=== PATIENT | male | born 1970 | race American Indian/Alaskan Native ===

== ENCOUNTER 2018-10-29 04:43 | Emergency (ER) | payer MEDICAID ==
[2018-10-29] MEDS ORDERED: Lactated Ringers 1,000 ML IV ONE (05:02)
--- NOTE | 2018-10-29 05:07 | EDM.PDOC ---
"<Rubio Hall M - Last Filed: 10/29/18 07:00> ED HPI GENERAL MEDICAL PROBLEM - General Chief Complaint: Gastrointestinal Problem Stated Complaint: AMBULANCE Time Seen by Provider: 10/29/18 05:00 Source of Information: Reports: Patient History Limitations: Reports: No Limitations - History of Present Illness INITIAL COMMENTS - FREE TEXT/NARRATIVE: This 48 yo male patient was brought to the ED by [facility] due to right upper quadrant abdominal pain. The patient reports he woke up about 1 hour ago with pain in his right upper quadrant. The patient states he went to the bathroom, fell down and started vomiting (7-8 times). The patient reports he has a history of pancreatitis, was supposed to have a follow-up appointment, but did not follow-up. The patient reports he drank 7-8 beers last night. The patient denies taking anything for his pain. Onset: Today Onset Date: 10/29/18 Onset Time: 04:00 Duration: Constant Location: Reports: Abdomen (RUQ) Quality: Reports: Ache, Sharp Severity: Moderate Improves with: Reports: None Worsens with: Reports: None Context: Reports: Other Associated Symptoms: Reports: Nausea/Vomiting Treatments AD OPERATIONS SPECIALIST: Reports: IV/IO Right Upper Abdomen Pain Score (Numeric/FACES): 8 - Related Data Allergies Allergy/AdvReac Type Severity Reaction Status Date / Time No Known Allergies Allergy Verified 10/29/18 05:07 Home Meds: Home Meds Aspirin [Halfprin] 81 mg PO BRK 05/01/16 [History] Lisinopril [Zestril] 10 mg PO DAILY 05/01/16 [History] Omeprazole 20 mg PO DAILY 09/23/18 [History] Past Medical History HEENT History: Reports: None Cardiovascular History: Reports: Hypertension Other Cardiovascular History: States his heart beats a little faster than it should. Respiratory History: Reports: None Gastrointestinal History: Reports: GERD, Other (See Below) Other Gastrointestinal History: Had something on his liver about 2 months ago. was suppose to follow up but did not. 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 - Infectious Disease History Infectious Disease History: Reports: None - Past Surgical History HEENT Surgical History: Reports: None GI Surgical History: Reports: EGD Social & Family History - Family History Family Medical History: Noncontributory - Tobacco Use Smoking Status *Q: Never Smoker Second Hand Smoke Exposure: No - Caffeine Use Caffeine Use: Reports: Soda - Alcohol Use Date of Last Drink: 10/28/18 - Recreational Drug Use Recreational Drug Use: No - Living Situation & Occupation Living situation: Reports: with Family Occupation: Employed ED ROS GENERAL - Review of Systems Review Of Systems: ROS reveals no pertinent complaints other than HPI. ED EXAM, GI/ABD - Physical Exam Exam: See Below Exam Limited By: No Limitations General Appearance: Alert, WD/WN, Moderate Distress Eyes: Bilateral: Normal Appearance, EOMI Ears: Normal External Exam, Normal Canal, Hearing Grossly Normal, Normal TMs Nose: Normal Inspection, Normal Mucosa, No Blood Throat/Mouth: Normal Inspection, Normal Lips, Normal Teeth, Normal Gums, Normal Oropharynx, Normal Voice, No Airway Compromise Head: Atraumatic, Normocephalic Neck: Normal Inspection, Supple, Non-Tender, Full Range of Motion Respiratory/Chest: No Respiratory Distress, Lungs Clear, Normal Breath Sounds, No Accessory Muscle Use, Chest Non-Tender GI/Abdominal Exam: Normal Bowel Sounds, No Organomegaly, No Distention, No Abnormal Bruit, No Mass, Pelvis Stable, Tender (RUQ) (Male) Exam: Deferred Rectal (Males) Exam: Deferred Back Exam: Normal Inspection, Full Range of Motion, NT Extremities: Normal Inspection, Normal Range of Motion, Non-Tender, Normal Capillary Refill, No Pedal Edema Neurological: Alert, Oriented, CN II-XII Intact, Normal Cognition, Normal Gait, Normal Reflexes, No Motor/Sensory Deficits Psychiatric: Normal Affect, Normal Mood Skin Exam: Warm, Dry, Intact, Normal Color, No Rash Lymphatic: No Adenopathy Course - Vital Signs Last Recorded V/S: Last Vital Signs Temp 37.0 C 10/29/18 09:05 Pulse 87 10/29/18 09:05 Resp 14 10/29/18 09:05 BP 108/64 10/29/18 09:05 Pulse Ox 96 10/29/18 09:05 - Orders/Labs/Meds Orders: Active Orders 24 hr Category Date Time Status EKG Documentation Completion [RC] URGENT Care 10/29/18 05:31 Active Abdomen Ltd [US] Urgent Exams 10/29/18 08:19 Taken CULTURE BLOOD [BC] Stat Lab 10/29/18 05:07 Received Labs: Laboratory Tests 10/29/18 10/29/18 10/29/18 Range/Units 05:07 05:07 05:07 WBC (5.0-10.0) 10^3/uL RBC (4.6-6.2) 10^6/uL Hgb (14.0-18.0) g/dL Hct (40.0-54.0) % MCV (80-100) fL MCH (27.0-34.0) pg MCHC (33.0-35.0) g/dL Plt Count (150-450) 10^3/uL Neut % (Auto) (42.2-75.2) % Lymph % (Auto) (20.5-50.1) % Columbia % (Auto) (2-8) % Eos % (Auto) (1.0-3.0) % Baso % (Auto) (0.0-1.0) % Sodium (135-145) mmol/L Potassium (3.6-5.0) mmol/L Chloride (101-111) mmol/L Carbon Dioxide (21.0-31.0) mmol/L Anion Gap BUN (7-18) mg/dL Creatinine (0.6-1.3) mg/dL Est Cr Clr Drug Dosing mL/min Estimated GFR (MDRD) BUN/Creatinine Ratio Glucose (74-105) mg/dL Lactic Acid 1.3 (0.5-2.2) mmol/L Calcium (8.4-10.2) mg/dl Total Bilirubin (0.2-1.0) mg/dL AST (10-42) IU/L ALT (10-60) IU/L Alkaline Phosphatase (42-121) IU/L Ammonia 8 L (11-35) umol/L Total Protein (6.7-8.2) g/dl Albumin (3.2-5.5) g/dl Globulin Albumin/Globulin Ratio Amylase 73 (28-100) U/L Lipase 55 H (22-51) U/L Urine Color (YELLOW) Urine Appearance (CLEAR) Urine pH (5.0-9.0) Ur Specific Hallock (1.005-1.030) Urine Protein (NEGATIVE) Urine Glucose (UA) (NEGATIVE) Urine Ketones (NEGATIVE) Urine Occult Blood (NEGATIVE) Urine Nitrite (NEGATIVE) Urine Bilirubin (NEGATIVE) Urine Urobilinogen (0.2-1.0) mg/dL Ur Leukocyte Esterase (NEGATIVE) Urine Opiates Screen (NEGATIVE) Ur Oxycodone Screen (NEGATIVE) Urine Methadone Screen (NEGATIVE) Acetaminophen < 10 ug/mL Ur Barbiturates Screen (NEGATIVE) U Tricyclic Antidepress (NEGATIVE) Ur Phencyclidine Scrn (NEGATIVE) Ur Amphetamine Screen (NEGATIVE) U Methamphetamines Scrn (NEGATIVE) Urine MDMA Screen (NEGATIVE) U Benzodiazepines Scrn (NEGATIVE) Urine Cocaine Screen (NEGATIVE) U Marijuana (THC) Screen (NEGATIVE) Ethyl Alcohol 136 mg/dL 10/29/18 10/29/18 10/29/18 Range/Units 05:07 05:07 07:45 WBC 5.0 (5.0-10.0) 10^3/uL RBC 4.13 L (4.6-6.2) 10^6/uL Hgb 12.1 L (14.0-18.0) g/dL Hct 36.1 L (40.0-54.0) % MCV 87.4 (80-100) fL MCH 29.3 (27.0-34.0) pg MCHC 33.5 (33.0-35.0) g/dL Plt Count 113 L (150-450) 10^3/uL Neut % (Auto) 73.1 (42.2-75.2) % Lymph % (Auto) 14.9 L (20.5-50.1) % Columbia % (Auto) 9.8 H (2-8) % Eos % (Auto) 2.0 (1.0-3.0) % Baso % (Auto) 0.2 (0.0-1.0) % Sodium 135 (135-145) mmol/L Potassium 3.7 (3.6-5.0) mmol/L Chloride 101 (101-111) mmol/L Carbon Dioxide 24.0 (21.0-31.0) mmol/L Anion Gap 13.7 BUN 8 (7-18) mg/dL Creatinine 0.6 (0.6-1.3) mg/dL Est Cr Clr Drug Dosing 150.56 mL/min Estimated GFR (MDRD) > 60 BUN/Creatinine Ratio 13.33 Glucose 124 H (74-105) mg/dL Lactic Acid (0.5-2.2) mmol/L Calcium 8.6 (8.4-10.2) mg/dl Total Bilirubin 2.0 H (0.2-1.0) mg/dL AST 90 H (10-42) IU/L ALT 41 (10-60) IU/L Alkaline Phosphatase 193 H (42-121) IU/L Ammonia (11-35) umol/L Total Protein 8.0 (6.7-8.2) g/dl Albumin 3.5 (3.2-5.5) g/dl Globulin 4.5 Albumin/Globulin Ratio 0.78 Amylase (28-100) U/L Lipase (22-51) U/L Urine Color Yellow (YELLOW) Urine Appearance Clear (CLEAR) Urine pH 6.0 (5.0-9.0) Ur Specific Hallock 1.010 (1.005-1.030) Urine Protein Negative (NEGATIVE) Urine Glucose (UA) Negative (NEGATIVE) Urine Ketones Negative (NEGATIVE) Urine Occult Blood Negative (NEGATIVE) Urine Nitrite Negative (NEGATIVE) Urine Bilirubin Negative (NEGATIVE) Urine Urobilinogen 0.2 (0.2-1.0) mg/dL Ur Leukocyte Esterase Negative (NEGATIVE) Urine Opiates Screen (NEGATIVE) Ur Oxycodone Screen (NEGATIVE) Urine Methadone Screen (NEGATIVE) Acetaminophen ug/mL Ur Barbiturates Screen (NEGATIVE) U Tricyclic Antidepress (NEGATIVE) Ur Phencyclidine Scrn (NEGATIVE) Ur Amphetamine Screen (NEGATIVE) U Methamphetamines Scrn (NEGATIVE) Urine MDMA Screen (NEGATIVE) U Benzodiazepines Scrn (NEGATIVE) Urine Cocaine Screen (NEGATIVE) U Marijuana (THC) Screen (NEGATIVE) Ethyl Alcohol mg/dL 10/29/18 Range/Units 07:45 WBC (5.0-10.0) 10^3/uL RBC (4.6-6.2) 10^6/uL Hgb (14.0-18.0) g/dL Hct (40.0-54.0) % MCV (80-100) fL MCH (27.0-34.0) pg MCHC (33.0-35.0) g/dL Plt Count (150-450) 10^3/uL Neut % (Auto) (42.2-75.2) % Lymph % (Auto) (20.5-50.1) % Columbia % (Auto) (2-8) % Eos % (Auto) (1.0-3.0) % Baso % (Auto) (0.0-1.0) % Sodium (135-145) mmol/L Potassium (3.6-5.0) mmol/L Chloride (101-111) mmol/L Carbon Dioxide (21.0-31.0) mmol/L Anion Gap BUN (7-18) mg/dL Creatinine (0.6-1.3) mg/dL Est Cr Clr Drug Dosing mL/min Estimated GFR (MDRD) BUN/Creatinine Ratio Glucose (74-105) mg/dL Lactic Acid (0.5-2.2) mmol/L Calcium (8.4-10.2) mg/dl Total Bilirubin (0.2-1.0) mg/dL AST (10-42) IU/L ALT (10-60) IU/L Alkaline Phosphatase (42-121) IU/L Ammonia (11-35) umol/L Total Protein (6.7-8.2) g/dl Albumin (3.2-5.5) g/dl Globulin Albumin/Globulin Ratio Amylase (28-100) U/L Lipase (22-51) U/L Urine Color (YELLOW) Urine Appearance (CLEAR) Urine pH (5.0-9.0) Ur Specific Hallock (1.005-1.030) Urine Protein (NEGATIVE) Urine Glucose (UA) (NEGATIVE) Urine Ketones (NEGATIVE) Urine Occult Blood (NEGATIVE) Urine Nitrite (NEGATIVE) Urine Bilirubin (NEGATIVE) Urine Urobilinogen (0.2-1.0) mg/dL Ur Leukocyte Esterase (NEGATIVE) Urine Opiates Screen Negative (NEGATIVE) Ur Oxycodone Screen Negative (NEGATIVE) Urine Methadone Screen Negative (NEGATIVE) Acetaminophen ug/mL Ur Barbiturates Screen Negative (NEGATIVE) U Tricyclic Antidepress Negative (NEGATIVE) Ur Phencyclidine Scrn Negative (NEGATIVE) Ur Amphetamine Screen Negative (NEGATIVE) U Methamphetamines Scrn Positive H (NEGATIVE) Urine MDMA Screen Negative (NEGATIVE) U Benzodiazepines Scrn Negative (NEGATIVE) Urine Cocaine Screen Negative (NEGATIVE) U Marijuana (THC) Screen Negative (NEGATIVE) Ethyl Alcohol mg/dL Meds: Medications Discontinued Medications Generic Name Dose Route Start Last Admin Trade Name Freq PRN Reason Stop Dose Admin Famotidine 20 mg 10/29/18 07:52 10/29/18 08:01 Pepcid IVPUSH 10/29/18 07:53 20 mg ONETIME ONE Administration Hydromorphone HCl 1 mg 10/29/18 05:15 10/29/18 05:19 Dilaudid IVPUSH 10/29/18 05:16 1 mg ONETIME ONE Administration Hydromorphone HCl 1 mg 10/29/18 08:22 10/29/18 08:37 Dilaudid IVPUSH 10/29/18 08:23 1 mg ONETIME ONE Administration Lactated Ringer's 1,000 mls @ 999 mls/hr 10/29/18 05:02 10/29/18 05:07 Ringers, Lactated IV 10/29/18 06:02 999 mls/hr .BOLUS ONE Administration Iopamidol 75 ml 10/29/18 06:36 10/29/18 07:05 Isovue-300 (61%) IVPUSH 10/29/18 06:37 75 ml ONETIME ONE Administration Ondansetron HCl 4 mg 10/29/18 07:52 10/29/18 08:03 Zofran IV 10/29/18 07:53 4 mg ONETIME ONE Administration - Re-Assessments/Exams Free Text/Narrative Re-Assessment/Exam: 10/29/18 07:[address] Parks at shift change. Departure - Departure Disposition: DC/Tfer to [facility] 02 Clinical Impression: Cholecystitis - Discharge Information Forms: ED Department Discharge, Interfacility Transfer EMTALA - My Orders Last 24 Hours: My Active Orders 10/29/18 08:19 Abdomen Ltd [US] Urgent - Assessment/Plan Last 24 Hours: My Active Orders 10/29/18 08:19 Abdomen Ltd [US] Urgent <April Parks - Last Filed: 10/29/18 10:01> ED HPI GENERAL MEDICAL PROBLEM - History of Present Illness INITIAL COMMENTS - FREE TEXT/NARRATIVE: I assumed care of the pt from Rubio COFFMAN at 0700HR shift change with CT Abd/Pelvis results pending. No changes to CC/HPI, Hx, ROS, exam, or lab results as documented by Rubio for this encounter. ED EXAM, GI/ABD - Physical Exam Exam: See Below Exam Limited By: No Limitations General Appearance: Alert, WD/WN, No Apparent Distress. No: Active Emesis Eyes: Bilateral: Normal Appearance Nose: Normal Inspection, No Blood Throat/Mouth: Normal Inspection, Normal Lips, Normal Teeth, Normal Gums, Normal Oropharynx, Normal Voice, No Airway Compromise Head: Atraumatic, Normocephalic Respiratory/Chest: No Respiratory Distress, Lungs Clear, Normal Breath Sounds, No Accessory Muscle Use, Chest Non-Tender Cardiovascular: Normal Peripheral Pulses, Regular Rate, Rhythm, No Edema, No Gallop, No JVD, No Murmur, No Rub GI/Abdominal Exam: Normal Bowel Sounds, Soft, No Organomegaly, No Distention, No Abnormal Bruit, No Mass, Pelvis Stable, Tender Back Exam: Normal Inspection Extremities: Normal Inspection Neurological: Alert, Oriented, No Motor/Sensory Deficits Psychiatric: Normal Mood Skin Exam: Warm, Dry, Intact, Normal Color, No Rash Course - Radiology Interpretation Free Text/Narrative:: [facility] Final Radiology Report Call: [phone] assistance Online chat: [email or web address] Name: BUD BRIGGS Age: 48Years M Date: 10/29/2018 SSN: -- : [id number] Study: CT ABDOMEN/PELVIS W Requesting Physician: Rubio Hall Images: 1 Addl Studies: Provided Clinical History: Contrast: With Contrast Medium: ISOVUE 300 Contrast Amount: 75 mL Contrast Method: RAC Page 1 of 2 EXAM: CT Abdomen and Pelvis With Contrast EXAM DATE/TIME: 10/29/2018 6:54 AM CLINICAL HISTORY: 48 years old, male; Pain; Abdominal pain; Localized; Right upper quadrant (ruq) TECHNIQUE: Axial computed tomography images of the abdomen and pelvis with intravenous contrast. All CT scans at this facility use at least one of these dose optimization techniques: automated exposure control; mA and/or kV adjustment per patient size (includes targeted exams where dose is matched to clinical indication); or iterative reconstruction. Coronal and sagittal reformatted images were created and reviewed. CONTRAST: 75 ml of ISOVUE 300 administered intravenously. COMPARISON: CT Abdomen Pelvis w Cont 09/23/2018 11:16 PM FINDINGS: Lower thorax: The visualized lung bases are clear. ABDOMEN: Liver: The liver is again cirrhotic and fatty in density. No discrete lesion is identified. Gallbladder and bile ducts: The gallbladder is again distended. No gallstones are evident, but ultrasound would be more sensitive. There again appears to be small pericholecystic fluid. Pancreas: Normal. No ductal dilation. BUD BRIGGS | Final Radiology Report CONFIDENTIALITY STATEMENT This report is intended only for use by the referring physician, and only in accordance with law. If you received this in error, call [phone]. Page 2 of 2 Spleen: Normal. No splenomegaly. Adrenals: Normal. No mass. Kidneys and ureters: Normal. No hydronephrosis. Stomach and bowel: The unopacified small bowel is not significantly distended to suggest obstruction. The large bowel is grossly unremarkable in appearance. Appendix: The appendix appears normal. PELVIS: Bladder: Unremarkable as visualized. Reproductive: The prostate is enlarged, measuring approximately 5.2 x 4.4 cm. ABDOMEN and PELVIS: Intraperitoneal space: There is no free air. There is no significant free fluid. Bones/joints: Degenerative changes again involve the spine and hips. Soft tissues: There is a similar very small fat containing umbilical hernia. Vasculature: The abdominal aorta is nonaneurysmal. Atherosclerotic vascular calcifications are again present. There are again perisplenic, perigastric and periesophageal varices. Lymph nodes: Normal. No enlarged lymph nodes. IMPRESSION: 1. Distended gallbladder with apparent small pericholecystic fluid, as on . No gallstones are evident, but ultrasound would be more sensitive. 2. Persistent cirrhotic, fatty liver with varices. 3. Similar very small fat containing umbilical hernia. 4. Persistent prostatomegaly. Thank you for allowing us to participate in the care of your patient. Dictated and Authenticated by: Dudley Hamilton MD 10/29/2018 8:13 AM Central Time ( & [place]) [facility] Final Radiology Report Call: [phone] assistance Online chat: [email or web address] Name: BUD BRIGGS Age: 48Years M Date: 10/29/2018 SSN: -- : [id number] Study: US ABDOMEN LTD Requesting Physician: APRIL PARKS Images: 15 Addl Studies: Provided Clinical History: Contrast: Without Contrast Medium: Contrast Amount: Contrast Method: Page 1 of 2 EXAM: US Abdomen Limited, Right Upper Quadrant EXAM DATE/TIME: 10/29/2018 8:47 AM CLINICAL HISTORY: 48 years old, male; Pain; Abdominal pain; Epigastric; Patient HX: Very tender in gb region TECHNIQUE: Real-time ultrasound of the abdomen with image documentation. Examination was focused on the right upper quadrant. COMPARISON: CT Abdomen Pelvis w Cont 10/29/2018 6:54 AM FINDINGS: Liver: The liver was not evaluated. Gallbladder: The gallbladder is distended and contains some sludge and/or tiny stones. Its wall is not significantly thickened. There appears to be small pericholecystic fluid. Sonographic Hayes sign is reportedly positive. Common bile duct: The common bile duct is normal in size for a patient of this age at 4.6 mm. Pancreas: Visualized portions of the pancreas, not fully including the tail, are without demonstrated abnormality. IMPRESSION: Distended gallbladder containing some sludge and/or tiny stones, without significant wall thickening, with small pericholecystic fluid. Sonographic Hayes sign was reportedly positive, and this raises suspicion for cholecystitis. BUD BRIGGS | Final Radiology Report CONFIDENTIALITY STATEMENT This report is intended only for use by the referring physician, and only in accordance with law. If you received this in error, call [phone]. Page 2 of 2 Thank you for allowing us to participate in the care of your patient. Dictated and Authenticated by: Dudley Hamilton MD 10/29/2018 9:32 AM Central Time ([place] & [place]) - Re-Assessments/Exams Free Text/Narrative Re-Assessment/Exam: 10/29/18 09:55 Pt's RUQ pain has been persistent for >5 hours, nausea is controlled. Departure - Departure Time of Disposition: 09:56 Condition: Serious - Discharge Information *PRESCRIPTION DRUG MONITORING PROGRAM REVIEWED*: Not Applicable *COPY OF PRESCRIPTION DRUG MONITORING REPORT IN PATIENT MURPHY: Not Applicable - My Orders Last 24 Hours: My Active Orders 10/29/18 08:19 Abdomen Ltd [US] Urgent - Assessment/Plan Last 24 Hours: My Active Orders 10/29/18 08:19 Abdomen Ltd [US] Urgent"
[2018-10-29] MEDS ORDERED: HYDROmorphone 1 MG/ML Syringe IVPUSH ONE ×2 (05:15→08:22)
[2018-10-29 05:40] LABS: ANION GAP 13.7; CHLORIDE,CL 101 mmol/L (101-111); SODIUM,NA 135 mmol/L (135-145)
[2018-10-29 06:04] LABS: ACETAMINOPHEN < 10 ug/mL
[2018-10-29] MEDS ORDERED: Iopamidol 612 MG/ML 75 ML Bottle IVPUSH ONE (06:36)
[2018-10-29] MEDS ORDERED: Famotidine 20 MG/2 ML SDV IVPUSH ONE (07:52)
[2018-10-29] MEDS ORDERED: Ondansetron 4 MG/2 ML SDV IV ONE (07:52)
[2018-10-29 10:09] VITALS: BP 127/71
== END 2018-10-29 15:00 ==
LOC: DL.ED 04:43
DX: K81.9 Cholecystitis, unspecified (principal); K21.9 Gastro-esophageal reflux disease without esophagitis; I10 Essential (primary) hypertension; Z79.82 Long term (current) use of aspirin; Z79.899 Other long term (current) drug therapy
CPT/HCPCS: 36415; 74177; 76705; 80053; 80305-QW; 81003; 82140; 82150; 83605; 83690; 85025; 87040; 93005; 96361; 96374; 96375; 96376; 99285; G0480; J1170; J2405; J3490; J7120; Q9967

== ENCOUNTER 2019-07-26 22:11 | Emergency (ER) | payer MEDICAID ==
[2019-07-26 22:19] VITALS: BP 146/95; PULSE 119
[2019-07-26] MEDS ORDERED: Bacitracin Oint 1 GM U/D Packet TOP ONE (22:35)
[2019-07-26] MEDS ORDERED: Lidocaine 1% 30 ML SDV INJECT ONE (22:35)
--- NOTE | 2019-07-26 22:39 | EDM.PDOC ---
ED HPI GENERAL MEDICAL PROBLEM - General Chief Complaint: Laceration Stated Complaint: CUT ON L HAND Time Seen by Provider: 07/26/19 22:30 Source of Information: Reports: Patient, RN, RN Notes Reviewed History Limitations: Reports: No Limitations - History of Present Illness INITIAL COMMENTS - FREE TEXT/NARRATIVE: patient presents to ER with a complaint of laceration to the left ventral hand. Patient states he was cutting PVC with a utility knife, and the knife slipped. Patient states tetanus vaccination is up-to-date. Onset: Today, Sudden Left Finger-Thumb Pain Score (Numeric/FACES): 5 - Related Data Allergies Allergy/AdvReac Type Severity Reaction Status Date / Time No Known Allergies Allergy Verified 07/26/19 22:24 Home Meds: Home Meds Aspirin [Halfprin] 81 mg PO BRK 05/01/16 [History] Lisinopril [Zestril] 10 mg PO DAILY 05/01/16 [History] Omeprazole 20 mg PO DAILY 09/23/18 [History] Past Medical History HEENT History: Reports: Impaired Vision Cardiovascular History: Reports: Hypertension Other Cardiovascular History: States his heart beats a little faster than it should. Respiratory History: Reports: None Gastrointestinal History: Reports: Cirrhosis, GERD, Other (See Below) Other Gastrointestinal History: Had something on his liver about 2 months ago. was suppose to follow up but did not. 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 Neurological History: Reports: None Psychiatric History: Reports: None Endocrine/Metabolic History: Reports: None Hematologic History: Reports: None Immunologic History: Reports: None Oncologic (Cancer) History: Reports: None Dermatologic History: Reports: None - Infectious Disease History Infectious Disease History: Reports: None - Past Surgical History Head Surgeries/Procedures: Reports: None HEENT Surgical History: Reports: None GI Surgical History: Reports: EGD Social & Family History - Family History Family Medical History: Noncontributory - Tobacco Use Smoking Status *Q: Never Smoker - Caffeine Use Caffeine Use: Reports: None - Recreational Drug Use Recreational Drug Use: No - Living Situation & Occupation Living situation: Reports: with Family Occupation: Employed ED ROS GENERAL - Review of Systems Review Of Systems: ROS reveals no pertinent complaints other than HPI. ED EXAM, SKIN/RASH Exam: See Below Exam Limited By: No Limitations General Appearance: Alert, WD/WN, No Apparent Distress Eye Exam: Bilateral Eye: EOMI, Normal Inspection Ears: Normal External Exam, Hearing Grossly Normal Nose: Normal Inspection Throat/Mouth: Normal Inspection, Normal Voice, No Airway Compromise Head: Atraumatic, Normocephalic Neck: Normal Inspection, Supple, Non-Tender, Full Range of Motion Respiratory/Chest: No Respiratory Distress, Lungs Clear, Normal Breath Sounds, No Accessory Muscle Use, Chest Non-Tender Cardiovascular: Normal Peripheral Pulses, Regular Rate, Rhythm, No Edema, No Gallop, No JVD, No Murmur, No Rub Peripheral Pulses: 2+: Radial (L), Radial (R) GI/Abdominal: Normal Bowel Sounds, Soft, Non-Tender (Male) Exam: Deferred Rectal (Males) Exam: Deferred Back Exam: Normal Inspection, Full Range of Motion, NT Extremities: Normal Inspection, Normal Range of Motion, Non-Tender, No Pedal Edema, Normal Capillary Refill Neurological: Alert, Oriented, CN II-XII Intact, Normal Cognition, Normal Gait, Normal Reflexes, No Motor/Sensory Deficits Psychiatric: Normal Affect, Normal Mood Skin: Warm, Dry, Other (3 cm laceration to the left ventral distal thumb) Location, Skin: Upper Extremity, Left Lymphatic: No Adenopathy ED SKIN PROCEDURES - Laceration/Wound Repair Left Proximal Ventral Digit - 1st (Thumb) Appearance: Subcutaneous Distal NVT: Neuro & Vascular Intact Anesthetic Type: Local Local Anesthesia - Lidocaine (Xylocaine): 1% Plain Local Anesthetic Volume: Other (12) Skin Prep: Chlorhexidine (Hibiciens) Exploration/Debridement/Repair: Wound Explored, In a Bloodless Field, Explored to Base, No Foreign Material Found Closed with: Sutures Lac/Wound length In cm: 3 Suture Size: 4-0 # of Sutures: 5 Suture Type: Nylon, Interrupted Drain Placement: No Sterile Dressing Applied: Provider Tetanus Status Addressed: Yes Complications: No Course - Vital Signs Last Recorded V/S: Last Vital Signs Temp 98.5 F 07/26/19 22:18 Pulse 119 H 07/26/19 22:18 Resp 18 07/26/19 22:18 BP 146/95 H 07/26/19 22:18 Pulse Ox 97 07/26/19 22:18 - Orders/Labs/Meds Meds: Medications Discontinued Medications Generic Name Dose Route Start Last Admin Trade Name Tab PRN Reason Stop Dose Admin Bacitracin 1 dose 07/26/19 22:35 07/26/19 22:38 Bacitracin Oint 1 Gm TOP 07/26/19 22:36 1 dose ONETIME ONE Administration Lidocaine HCl 30 ml 07/26/19 22:35 07/26/19 22:38 Xylocaine-Mpf 1% INJECT 07/26/19 22:36 30 ml ONETIME ONE Administration Departure - Departure Time of Disposition: 23:03 Disposition: Home, Self-Care 01 Condition: Good Clinical Impression: Laceration - Discharge Information *PRESCRIPTION DRUG MONITORING PROGRAM REVIEWED*: No *COPY OF PRESCRIPTION DRUG MONITORING REPORT IN PATIENT MURPHY: No Instructions: Laceration Care, Adult, [id number], Stitches, Pomerene, or Adhesive Wound Closure, [id number] Forms: ED Department Discharge Additional Instructions: Follow up with your primary care facility in 7-10 days to have sutures removed Keep area clean and dry Monitor for signs of infection i.e. swelling, redness, warmth, drainage
== END 2019-07-26 23:07 | disposition home or self-care (01) ==
LOC: DL.ED 22:11
DX: S61.012A Laceration without foreign body of left thumb without damage to nail, initial encounter (principal); I10 Essential (primary) hypertension; K21.9 Gastro-esophageal reflux disease without esophagitis; Z79.82 Long term (current) use of aspirin; Z79.899 Other long term (current) drug therapy; W26.0XXA Contact with knife, initial encounter; Y93.89 Activity, other specified
CPT/HCPCS: 12002; 99282; J2001

== ENCOUNTER 2022-12-11 23:25 | Emergency (ER) | payer MEDICAID ==
[2022-12-11] MEDS ORDERED: Lactated Ringers 1,000 ML IV ONE (23:28)
[2022-12-12 00:05] LABS: PTT,PARTIAL THROMBOPLSTIN TIME 25.2 SEC (22.0-34.0)
[2022-12-12 00:08] LABS: ANION GAP 14.5 mEq/L (7-13); CHLORIDE,CL 101 mmol/L (98-107); SODIUM,NA 138 mmol/L (136-145)
[2022-12-12 00:16] LABS: ESTIMATED GFR 95 mL/min (>=60)
[2022-12-12 00:26] LABS: AMPHETAMINES,URINE POSITIVE (NEGATIVE); BARBITURATES,URINE NEGATIVE (NEGATIVE); BENZODIAZEPINE,URINE NEGATIVE (NEGATIVE); MDMA (ECSTASY), URINE NEGATIVE (NEGATIVE); METHADONE,URINE NEGATIVE (NEGATIVE); METHAMPHETAMINES,URINE POSITIVE (NEGATIVE); OPIATES,URINE NEGATIVE (NEGATIVE); OXYCODONE,URINE NEGATIVE (NEGATIVE); PHENCYCLIDINE,URINE NEGATIVE (NEGATIVE); TCA,URINE NEGATIVE (NEGATIVE)
[2022-12-12] MEDS ORDERED: Lidocaine 1% with EPINEPHrine 1:100,000 20 ML MDV ONE (00:43)
[2022-12-12] MEDS ORDERED: Bacitracin Oint 1 GM U/D Packet TOP ONE (01:22)
[2022-12-12] MEDS ORDERED: Diphtheria,Pertussis(Acell),Tetanus Vaccine 0.5 ML Syringe IM ONE (01:24)
== END 2022-12-12 01:39 | disposition home or self-care (01) ==
LOC: DL.ED 23:25
DX: S01.81XA Laceration without foreign body of other part of head, initial encounter (principal); S00.531A Contusion of lip, initial encounter; S00.33XA Contusion of nose, initial encounter; K02.9 Dental caries, unspecified; F15.10 Other stimulant abuse, uncomplicated; D17.0 Benign lipomatous neoplasm of skin and subcutaneous tissue of head, face and neck; I10 Essential (primary) hypertension; K21.9 Gastro-esophageal reflux disease without esophagitis; M19.90 Unspecified osteoarthritis, unspecified site; Z23 Encounter for immunization; Z79.82 Long term (current) use of aspirin; Z79.899 Other long term (current) drug therapy; W10.9XXA Fall (on) (from) unspecified stairs and steps, initial encounter
CPT/HCPCS: 12013; 36415; 70450; 70486; 72125; 80053; 80305-QW; 80307; 85025; 85610; 85730; 86140; 90471; 99284; 99284-25

== ENCOUNTER 2023-06-15 22:40 | Emergency (ER) | payer MEDICAID ==
[2023-06-15] MEDS ORDERED: Bacitracin Oint 1 GM U/D Packet TOP ONE (23:04)
[2023-06-15] MEDS ORDERED: Diphtheria,Pertussis(Acell),Tetanus Vaccine 0.5 ML Syringe IM ONE (23:04)
[2023-06-15] MEDS ORDERED: Lidocaine 1% 5 ML VIAL INJECT ONE (23:04)
[2023-06-15 23:05] VITALS: BP 137/96; PULSE 117
== END 2023-06-16 00:13 | disposition home or self-care (01) ==
LOC: DL.ED 22:40
DX: S01.111A Laceration without foreign body of right eyelid and periocular area, initial encounter (principal); R60.9 Edema, unspecified; I10 Essential (primary) hypertension; K21.9 Gastro-esophageal reflux disease without esophagitis; Z79.899 Other long term (current) drug therapy; Y04.0XXA Assault by unarmed brawl or fight, initial encounter
CPT/HCPCS: 12011; 70450; 70486; 72125; 90471; 90715; 99283; 99284-25; A9270-GY; J3490

== ENCOUNTER 2023-12-11 21:09 | Emergency (ER) | payer MEDICAID ==
[2023-12-11] MEDS ORDERED: Morphine 4 MG/ML Syringe IVPUSH ONE (21:23)
[2023-12-11 21:24] VITALS: BP 151/95; PULSE 89
[2023-12-11 21:38] LABS: BASOPHILS PERCENT AUTO 0.6 % (0.0-1.0); EOSINOPHILS PERCENT AUTO 2.4 % (1.0-3.0); HEMATOCRIT 39.1 % (40.0-54.0); HEMOGLOBIN 13.4 g/dL (14.0-18.0); LYMPHOCYTES PERCENT AUTO 33.7 % (20.5-50.1); MEAN CORPUSCULAR HEMOGLOBIN 31.2 pg (27.0-34.0); MEAN CORPUSCULAR HGB CONC 34.3 g/dL (33.0-35.0); MEAN CORPUSCULAR VOLUME 91.1 fL (80-100); NEUTROPHILS PERCENT AUTO 47.3 % (42.2-75.2); PLATELET COUNT,PLT 75 10^3/uL (150-450); RED BLOOD CELL COUNT 4.29 10^6/uL (4.6-6.2); WHITE BLOOD CELL COUNT,WBC 3.3 10^3/uL (5.0-10.0)
[2023-12-11] MEDS: Ondansetron 4 MG/2 ML SDV IVPUSH ONE (21:39)
[2023-12-11] MEDS: Morphine 2 MG/ML SYRINGE IVPUSH ONE (21:44)
[2023-12-11 22:00] LABS: A/G RATIO 0.8; ALBUMIN 3.5 g/dL (3.4-5.0); ANION GAP 12.8 mEq/L (7-13); BILIRUBIN TOTAL 1.3 mg/dL (0.2-1.0); BUN/CREATININE RATIO 10.2 (No establ ref range); CALCIUM 8.9 mg/dL (8.5-10.1); CREATININE 0.88 mg/dL (0.70-1.30); EST CRCL DRUG DOSING (CG) 97.08 mL/min; POTASSIUM,K 3.8 mmol/L (3.5-5.1); PROTEIN TOTAL,TP 7.9 g/dL (6.4-8.2)
[2023-12-11] MEDS: Sodium Chloride 0.9% 10 ML Syringe FLUSH PRN (22:00)
[2023-12-11] MEDS: Iopamidol 612 MG/ML 100 ML Bottle IVPUSH ONE (22:00)
[2023-12-11 22:01] LABS: APPEARANCE,URINE SLIGHTLY CLOUDY (CLEAR); BILIRUBIN,URINE NEGATIVE (NEGATIVE); COLOR,URINE YELLOW (YELLOW); GLUCOSE,URINE NEGATIVE (NEGATIVE); KETONES,URINE NEGATIVE (NEGATIVE); LEUKOCYTE ESTERASE,URINE NEGATIVE (NEGATIVE); NITRITE,URINE NEGATIVE (NEGATIVE); OCCULT BLOOD,URINE NEGATIVE (NEGATIVE); PH,URINE 8.5 (5.0-9.0); PROTEIN,URINE NEGATIVE (NEGATIVE)
[2023-12-11] MEDS: Sodium Chloride 0.9% 1,000 ML IV ONE (22:44)
== END 2023-12-11 23:13 | disposition home or self-care (01) ==
LOC: DL.ED 21:09
DX: K80.20 Calculus of gallbladder without cholecystitis without obstruction (principal); R11.2 Nausea with vomiting, unspecified; I10 Essential (primary) hypertension; Z79.899 Other long term (current) drug therapy; Z88.5 Allergy status to narcotic agent
CPT/HCPCS: 36415; 74177; 80053; 81003; 83690; 84484; 85025; 93005; 93010; 96374; 96375; 99284; 99284-25; J2270; J2405; J3490; J7030; Q9967

== ENCOUNTER 2023-12-12 20:06 | Emergency (ER) | payer MEDICAID ==
[2023-12-12 20:27] VITALS: BP 149/96; PULSE 89
[2023-12-12 20:29] LABS: BASOPHILS PERCENT AUTO 0.3 % (0.0-1.0); EOSINOPHILS PERCENT AUTO 2.7 % (1.0-3.0); HEMATOCRIT 41.4 % (40.0-54.0); LYMPHOCYTES PERCENT AUTO 35.2 % (20.5-50.1); MEAN CORPUSCULAR HEMOGLOBIN 31.2 pg (27.0-34.0); MEAN CORPUSCULAR HGB CONC 33.8 g/dL (33.0-35.0); MEAN CORPUSCULAR VOLUME 92.2 fL (80-100); MONOCYTES PERCENT AUTO 14.8 % (2-8); PLATELET COUNT,PLT 77 10^3/uL (150-450); RED BLOOD CELL COUNT 4.49 10^6/uL (4.6-6.2); WHITE BLOOD CELL COUNT,WBC 3.4 10^3/uL (5.0-10.0)
[2023-12-12] MEDS: Ondansetron 4 MG/2 ML SDV IVPUSH ONE (20:54)
[2023-12-12] MEDS: Morphine 2 MG/ML SYRINGE IVPUSH ONE (20:56)
[2023-12-12 20:57] LABS: A/G RATIO 0.8; ALBUMIN 3.6 g/dL (3.4-5.0); ANION GAP 13.4 mEq/L (7-13); BILIRUBIN TOTAL 1.3 mg/dL (0.2-1.0); BUN/CREATININE RATIO 8.3 (No establ ref range); CALCIUM 8.7 mg/dL (8.5-10.1); CREATININE 0.84 mg/dL (0.70-1.30); EST CRCL DRUG DOSING (CG) 105.7 mL/min; MAGNESIUM 1.6 mg/dL (1.8-2.4); POTASSIUM,K 4.4 mmol/L (3.5-5.1); PROTEIN TOTAL,TP 8.2 g/dL (6.4-8.2)
[2023-12-12] MEDS: Sodium Chloride 0.9% 10 ML Syringe FLUSH PRN (20:59)
[2023-12-12] MEDS: Magnesium Sulfate/Water 2 GM in Premix Bag 1 BAG IV ONE (21:24)
[2023-12-12] MEDS: Sodium Chloride 0.9% 1,000 ML IV ONE (21:24)
== END 2023-12-12 23:06 | disposition home or self-care (01) ==
LOC: DL.ED 20:06
DX: K80.20 Calculus of gallbladder without cholecystitis without obstruction (principal); R11.2 Nausea with vomiting, unspecified; E83.42 Hypomagnesemia; I10 Essential (primary) hypertension; Z79.899 Other long term (current) drug therapy; Z88.5 Allergy status to narcotic agent
CPT/HCPCS: 36415; 80053; 83690; 83735; 84484; 85025; 93005; 93010; 96365; 96366; 96375; 99284; J2270; J2405; J3475; J7030; J3490

== ENCOUNTER 2024-06-20 16:18 | Emergency (ER) | payer MEDICAID ==
[2024-06-20 17:58] VITALS: BP 147/92
[2024-06-20 18:23] LABS: BASOPHILS PERCENT AUTO 0.2 % (0.0-1.0); EOSINOPHILS PERCENT AUTO 0.5 % (1.0-3.0); HEMATOCRIT 40.6 % (40.0-54.0); HEMOGLOBIN 13.8 g/dL (14.0-18.0); MEAN CORPUSCULAR HEMOGLOBIN 31.3 pg (27.0-34.0); MEAN CORPUSCULAR VOLUME 92.1 fL (80-100); MONOCYTES PERCENT AUTO 12.1 % (2-8); NEUTROPHILS PERCENT AUTO 70.2 % (42.2-75.2); PLATELET COUNT,PLT 99 10^3/uL (150-450); RED BLOOD CELL COUNT 4.41 10^6/uL (4.6-6.2); WHITE BLOOD CELL COUNT,WBC 6.5 10^3/uL (5.0-10.0)
[2024-06-20 18:44] LABS: APPEARANCE,URINE CLEAR (CLEAR); BILIRUBIN,URINE NEGATIVE (NEGATIVE); COLOR,URINE YELLOW (YELLOW); GLUCOSE,URINE NEGATIVE (NEGATIVE); KETONES,URINE NEGATIVE (NEGATIVE); LEUKOCYTE ESTERASE,URINE NEGATIVE (NEGATIVE); NITRITE,URINE NEGATIVE (NEGATIVE); OCCULT BLOOD,URINE NEGATIVE (NEGATIVE); PH,URINE 8.5 (5.0-9.0); PROTEIN,URINE TRACE (NEGATIVE)
[2024-06-20 18:48] LABS: A/G RATIO 0.6; ALANINE AMINOTRANSFERASE,ALT 54 U/L (16-63); ALBUMIN 3.5 g/dL (3.4-5.0); ALKALINE PHOSPHATASE 224 U/L (46-116); ANION GAP 9.3 mEq/L (7-13); ASPARTATE AMNIOTRANSFERASE,AST 91 U/L (15-37); BILIRUBIN TOTAL 1.4 mg/dL (0.2-1.0); BLOOD UREA NITROGEN,BUN 7 mg/dL (7-18); BUN/CREATININE RATIO 8.4 (No establ ref range); CALCIUM 8.8 mg/dL (8.5-10.1); CARBON DIOXIDE,CO2 30 mmol/L (21-32); CHLORIDE,CL 100 mmol/L (98-107); CREATININE 0.83 mg/dL (0.70-1.30); EST CRCL DRUG DOSING (CG) 96.23 mL/min; GLUCOSE RANDOM 103 mg/dL (70-99); LACTIC ACID 1.4 mmol/L (0.4-2.0); MAGNESIUM 1.4 mg/dL (1.8-2.4); POTASSIUM,K 3.3 mmol/L (3.5-5.1); PROTEIN TOTAL,TP 9.3 g/dL (6.4-8.2); SODIUM,NA 136 mmol/L (136-145)
[2024-06-20 18:50] LABS: AMPHETAMINES,URINE NEGATIVE (NEGATIVE); BARBITURATES,URINE NEGATIVE (NEGATIVE); BENZODIAZEPINE,URINE NEGATIVE (NEGATIVE); MDMA (ECSTASY), URINE NEGATIVE (NEGATIVE); METHADONE,URINE NEGATIVE (NEGATIVE); METHAMPHETAMINES,URINE NEGATIVE (NEGATIVE); OPIATES,URINE NEGATIVE (NEGATIVE); OXYCODONE,URINE NEGATIVE (NEGATIVE); PHENCYCLIDINE,URINE NEGATIVE (NEGATIVE); TCA,URINE NEGATIVE (NEGATIVE)
[2024-06-20 18:52] LABS: ESTIMATED GFR 105 mL/min (>=60); ETHANOL BLOOD MEDICAL < 3 mg/dL (0)
[2024-06-20] MEDS ORDERED: Iopamidol 755 Mg/ML 100 ML Bottle IVPUSH ONE (18:59)
[2024-06-20 19:13] LABS: WBC,URINE 0-5 /HPF (0-5/HPF)
[2024-06-20 19:14] LABS: BACTERIA,URINE FEW /HPF (0-FEW/HPF); EPITHELIAL CELLS,URINE RARE /HPF (NOT SEEN)
[2024-06-20] MEDS: Magnesium Sulfate/Water Premix 2 GM in Premix Bag 1 BAG IV ONE (19:46)
[2024-06-20] MEDS: Potassium Chloride 10 MEQ Tab.ER PO ONE (20:50)
[2024-06-20] MEDS: Dexamethasone 4 MG/ML SDV IVPUSH ONE (21:47)
[2024-06-20] MEDS: Doxycycline Monohydrate 100 MG Cap PO ONE (21:47)
[2024-06-20 22:06] VITALS: PULSE 103
== END 2024-06-20 21:58 | disposition home or self-care (01) ==
LOC: DL.ED 16:18
DX: R91.8 Other nonspecific abnormal finding of lung field (principal); I10 Essential (primary) hypertension; Z88.5 Allergy status to narcotic agent
CPT/HCPCS: 36415; 71046; 71275; 80053; 80305; 80307; 81001; 83605; 83735; 84484; 85025; 85379; 86140; 87635; 87804; 93005; 96365; 96366; 96375; 99285; A9270; J1100; J3475; U0002

== ENCOUNTER 2024-09-21 10:45 | Emergency (ER) | payer MEDICAID ==
[2024-09-21 11:42] VITALS: BP 128/88; PULSE 94
== END 2024-09-21 12:06 | disposition home or self-care (01) ==
LOC: DL.ED 10:45
DX: J18.9 Pneumonia, unspecified organism (principal); I10 Essential (primary) hypertension; Z88.5 Allergy status to narcotic agent
CPT/HCPCS: 99283

== ENCOUNTER 2024-11-25 19:24 | Emergency (ER) | payer MEDICAID ==
[2024-11-25 20:19] VITALS: BP 136/93; PULSE 128
[2024-11-25] MEDS ORDERED: Sodium Chloride 0.9% 10 ML Syringe FLUSH PRN (20:51)
[2024-11-25] MEDS: Lactated Ringers 1,000 ML IV ONE (21:04)
[2024-11-25 21:05] LABS: HEMATOCRIT 37.7 % (40.0-54.0); LYMPHOCYTES PERCENT AUTO 28.7 % (20.5-50.1); MEAN CORPUSCULAR HEMOGLOBIN 31.6 pg (27.0-34.0); MEAN CORPUSCULAR HGB CONC 34.5 g/dL (33.0-35.0); MEAN CORPUSCULAR VOLUME 91.5 fL (80-100); MONOCYTES PERCENT AUTO 21.6 % (2-8); NEUTROPHILS PERCENT AUTO 49.7 % (42.2-75.2); PLATELET COUNT,PLT 28 10^3/uL (150-450); RED BLOOD CELL COUNT 4.12 10^6/uL (4.6-6.2); WHITE BLOOD CELL COUNT,WBC 2.7 10^3/uL (5.0-10.0)
[2024-11-25 21:26] LABS: A/G RATIO 0.58; ALBUMIN 3.3 g/dL (3.4-5.0); ANION GAP 15.4 mEq/L (7-13); BILIRUBIN TOTAL 2.3 mg/dL (0.2-1.0); BUN/CREATININE RATIO 10.1 (No establ ref range); CALCIUM 9.2 mg/dL (8.5-10.1); CREATININE 0.99 mg/dL (0.70-1.30); EST CRCL DRUG DOSING (CG) 82.09 mL/min; POTASSIUM,K 3.4 mmol/L (3.5-5.1)
[2024-11-25 23:10] LABS: APPEARANCE,URINE CLEAR (CLEAR); BILIRUBIN,URINE NEGATIVE (NEGATIVE); COLOR,URINE YELLOW (YELLOW); GLUCOSE,URINE NEGATIVE (NEGATIVE); KETONES,URINE NEGATIVE (NEGATIVE); LEUKOCYTE ESTERASE,URINE NEGATIVE (NEGATIVE); NITRITE,URINE NEGATIVE (NEGATIVE); OCCULT BLOOD,URINE TRACE-INTACT (NEGATIVE); PROTEIN,URINE NEGATIVE (NEGATIVE)
[2024-11-25] MEDS: Dexamethasone 4 MG/ML SDV PO ONE (23:15)
[2024-11-25 23:47] LABS: BACTERIA,URINE MODERATE /HPF (0-FEW/HPF); EPITHELIAL CELLS,URINE FEW /HPF (NOT SEEN); WBC,URINE 0-5 /HPF (0-5/HPF)
== END 2024-11-25 23:47 | disposition home or self-care (01) ==
LOC: DL.ED 19:24
DX: J98.8 Other specified respiratory disorders (principal); I10 Essential (primary) hypertension; Z88.8 Allergy status to other drugs, medicaments and biological substances
CPT/HCPCS: 36415; 71046; 80053; 81001; 85025; 87428; 99284; J1100; J7120; 99283

== ENCOUNTER 2025-03-10 16:05 | Emergency (ER) | payer MEDICAID ==
[2025-03-10] MEDS ORDERED: Sodium Chloride 0.9% 10 ML Syringe FLUSH PRN (16:19)
[2025-03-10 16:36] LABS: HEMATOCRIT 27.2 % (40.0-54.0); HEMOGLOBIN 9.6 g/dL (14.0-18.0); MEAN CORPUSCULAR HEMOGLOBIN 33.7 pg (27.0-34.0); MEAN CORPUSCULAR HGB CONC 35.3 g/dL (33.0-35.0); MEAN CORPUSCULAR VOLUME 95.4 fL (80-100); PLATELET COUNT,PLT 121 10^3/uL (150-450); RED BLOOD CELL COUNT 2.85 10^6/uL (4.6-6.2); WHITE BLOOD CELL COUNT,WBC 11.9 10^3/uL (5.0-10.0)
[2025-03-10 16:40] LABS: BASOPHILS PERCENT AUTO 0.5 % (0.0-1.0); EOSINOPHILS PERCENT AUTO 0.7 % (1.0-3.0); MONOCYTES PERCENT AUTO 9.2 % (2-8); NEUTROPHILS PERCENT AUTO 82.6 % (42.2-75.2)
[2025-03-10] MEDS: Sodium Chloride 0.9% 1,000 ML IV ONE ×3 (16:41→19:49)
[2025-03-10 16:47] LABS: INR 1.6 (0.9-1.2)
[2025-03-10 16:50] LABS: BAND PERCENT MAN 3 %; LYMPHOCYTES PERCENT MAN 6 % (20-50); METAMYELOCYTE PERCENT MAN 2; MONOCYTES PERCENT MAN 4 % (2-8); SEG NEUTROPHILS PERCENT MAN 85 % (42-75)
[2025-03-10 16:56] LABS: LACTIC ACID 2.4 mmol/L (0.4-2.0)
[2025-03-10 17:04] LABS: A/G RATIO 0.15; ALBUMIN 1.2 g/dL (3.4-5.0); BUN/CREATININE RATIO 8.4 (No establ ref range); C-REACTIVE PROTEIN 5.24 ng/dL (<=0.50); CALCIUM 8.4 mg/dL (8.5-10.1); EST CRCL DRUG DOSING (CG) 15.76 mL/min; MAGNESIUM 1.5 mg/dL (1.8-2.4); PROTEIN TOTAL,TP 9.1 g/dL (6.4-8.2)
[2025-03-10 17:07] LABS: CREATININE 5.36 mg/dL (0.70-1.30)
[2025-03-10 18:09] LABS: BILIRUBIN,URINE LARGE (NEGATIVE); GLUCOSE,URINE 100 (NEGATIVE); KETONES,URINE NEGATIVE (NEGATIVE); LEUKOCYTE ESTERASE,URINE NEGATIVE (NEGATIVE); NITRITE,URINE NEGATIVE (NEGATIVE); OCCULT BLOOD,URINE LARGE (NEGATIVE); PROTEIN,URINE 100 (NEGATIVE)
[2025-03-10] MEDS: Magnesium Sulfate 2 GM/50 mL 2 GM in Premix Bag 1 BAG IV ONE (18:09)
[2025-03-10 18:10] LABS: APPEARANCE,URINE CLOUDY (CLEAR); COLOR,URINE AMBER (YELLOW)
[2025-03-10 18:17] LABS: RBC,URINE PACKED /HPF (0-5); WBC,URINE 0-5 /HPF (0-5/HPF)
[2025-03-10 18:18] LABS: BACTERIA,URINE MANY /HPF (0-FEW/HPF); EPITHELIAL CELLS,URINE FEW /HPF (NOT SEEN); MUCUS,URINE RARE /LPF (NOT SEEN)
[2025-03-10] MEDS: LORazepam 2 MG/ML SDV IVPUSH ONE (20:42)
[2025-03-10] MEDS: Piperacillin/Tazobactam 2.25 GM in Sodium Chloride 0.9% 50 ML IV ONE (22:49)
[2025-03-11 02:28] VITALS: BP 138/82; PULSE 112
== END 2025-03-11 02:11 ==
LOC: DL.ED 16:05 → EEVIPCON 16:05 → DL.ED 03-11 02:11
DX: K70.31 Alcoholic cirrhosis of liver with ascites (principal); F10.20 Alcohol dependence, uncomplicated; R79.89 Other specified abnormal findings of blood chemistry; N17.9 Acute kidney failure, unspecified; I10 Essential (primary) hypertension; Z88.5 Allergy status to narcotic agent
CPT/HCPCS: 36415; 74176; 76705; 80053; 81001; 82140; 83605; 83690; 83735; 83880; 85025; 85610; 86140; 87040; 96361; 96365; 96366; 96367; 96375; 99284; 99285; J2060; J2543; J3475; J7030